=== PATIENT | female | born 1985 | race Caucasian/White ===

== ENCOUNTER 2017-08-16 16:45 | Emergency (ER) | payer SELFPAY ==
[~2017-08-16] VITALS: Ht 157.5 cm; Wt 61.7 kg
[~2017-08-16 16:45] MED LIST: HYDR-3498 PO; NAPR-260 PO; PREN1TAB49 PO; SSD1C20 TOP
[2017-08-16 16:49] VITALS: Ht 157.5 cm; Wt 61.7 kg
== END 2017-08-16 20:19 | disposition left against medical advice (07) ==
LOC: E/R 16:45
DX: Z53.21 Procedure and treatment not carried out due to patient leaving prior to being seen by health care provider (principal)

== ENCOUNTER 2018-01-03 15:13 | Emergency (ER) | END 2018-01-03 15:30 | disposition home or self-care (01) ==

== ENCOUNTER 2018-03-21 21:59 | Outpatient (CLI) | END 2018-03-22 01:20 | disposition home or self-care (01) ==

== ENCOUNTER 2018-03-31 10:18 | Inpatient (IN) | END 2018-04-03 12:55 | disposition home or self-care (01) | DRG 775 ==